=== PATIENT | female | born 1990 | race Caucasian/White ===

== ENCOUNTER 2017-06-29 07:03 | Inpatient (IN) | payer OTHER ==
[2017-06-29] VITALS (26 sets, daily range): BP systolic 87–134; BP diastolic 48–75
[~2017-06-29] VITALS: Ht 180.3 cm; Wt 109.0 kg
[2017-06-29] MEDS ORDERED: PRENATAL TABLE1 EAC3 PO (07:57)
[2017-06-29] MEDS ORDERED: FISH OIL 1,2001 EAC3 PO (07:58)
[2017-06-29] MEDS ORDERED: TYLENOL REGULA325 MG PO (07:59)
[2017-06-29 10:07] LABS: BASOPHIL (%) 0.3 % (0-1); EOSINOPHIL (%) 0.4 % (0-5); EOSINOPHIL COUNT 0.1 K/uL (0-0.3); HEMATOCRIT 36.7 % (36.0-46.0); HEMOGLOBIN 12.4 G/DL (11.9-15.5); IMMATURE GRANULOCYTE (%) 1.2 % (0.0-0.7); LYMPHOCYTE (%) 12.6 % (15-42); LYMPHOCYTE COUNT 1.6 K/uL (1.0-2.8); MCH 31.2 PG (29.0-34.0); MCHC 33.8 G/DL (30.0-36.0); MCV 92.2 FL (83-99); MONOCYTE (%) 8.4 % (3-12); MONOCYTE COUNT 1.1 K/uL (0-0.8); NEUTROPHIL (%) 77.1 % (45-76); NEUTROPHIL COUNT 9.9 K/uL (1.8-6.4); PLATELET COUNT 253 K/uL (156-360); RBC DIS.WIDTH-CV 13.5 % (11.8-14.6); RBC DIS.WIDTH-SD 45.9 % (39-53); RED BLOOD COUNT 3.98 M/uL (3.80-5.20); WHITE BLOOD COUNT 12.8 K/uL (4.1-10.2)
[2017-06-30 06:25] LABS: BASOPHIL (%) 0.3 % (0-1); BASOPHIL COUNT 0.1 K/uL (0-0.1); EOSINOPHIL (%) 0.4 % (0-5); EOSINOPHIL COUNT 0.1 K/uL (0-0.3); HEMATOCRIT 34.8 % (36.0-46.0); HEMOGLOBIN 11.6 G/DL (11.9-15.5); LYMPHOCYTE (%) 13.6 % (15-42); MCH 30.7 PG (29.0-34.0); MCHC 33.3 G/DL (30.0-36.0); MCV 92.1 FL (83-99); MONOCYTE (%) 9.6 % (3-12); MONOCYTE COUNT 2.1 K/uL (0-0.8); NEUTROPHIL (%) 75.1 % (45-76); NEUTROPHIL COUNT 16.3 K/uL (1.8-6.4); PLATELET COUNT 246 K/uL (156-360); RBC DIS.WIDTH-CV 13.4 % (11.8-14.6); RBC DIS.WIDTH-SD 45.8 % (39-53); RED BLOOD COUNT 3.78 M/uL (3.80-5.20); WHITE BLOOD COUNT 21.7 K/uL (4.1-10.2)
[2017-06-30 07:12] VITALS: BP 108/55
[2017-06-30 15:15] VITALS: BP 117/65
[2017-06-30 23:56] VITALS: BP 103/58
== END 2017-07-01 12:30 | disposition home or self-care (01) | DRG 775 ==
LOC: LDRP-OP → 2WEST 07:04 → LDRP-OP 08:31 → 2WEST 19:07 → LDRP-OP 07-21 15:40
PROVIDERS: Advanced Practice Midwife; Obstetrics & Gynecology
DX: O70.0 First degree perineal laceration during delivery (principal); O69.1XX0 Labor and delivery complicated by cord around neck, with compression, not applicable or unspecified; O77.0 Labor and delivery complicated by meconium in amniotic fluid; O48.0 Post-term pregnancy; O26.03 Excessive weight gain in pregnancy, third trimester; M41.9 Scoliosis, unspecified; Z3A.40 40 weeks gestation of pregnancy; Z37.0 Single live birth
CPT/HCPCS: 82948; 85025; C1755; J3010; J7120

== ENCOUNTER → 2017-07-05 | Outpatient (CLI) | payer OTHER ==
[~2017-07-05] MED LIST: FISH OIL 1,2001 EAC3 PO; PRENATAL TABLE1 EAC3 PO; TYLENOL REGULA325 MG PO
== END | disposition home or self-care (01) ==
LOC: LAC 12:01
DX: Z39.1 Encounter for care and examination of lactating mother (principal); O92.03 Retracted nipple associated with lactation; O92.4 Hypogalactia
CPT/HCPCS: G0463